=== PATIENT | female | born 1985 | race Caucasian/White ===

== ENCOUNTER → 2020-11-21 14:52 | Outpatient (CLI) | payer BC, SELFPAY ==
[2020-11-21] MEDS: COVID-19 VACC #1, MRNA(MOD) 100 MCG/0.5 ML VIAL IM (15:01)
== END ==
PROVIDERS: Visit Provider Internal Medicine
DX: Z23 Encounter for immunization (principal)
CPT/HCPCS: 0011A; 91301

== ENCOUNTER → 2020-12-19 15:06 | Outpatient (CLI) | payer BC, SELFPAY ==
[2020-12-19] MEDS: COVID-19 VACC #2, MRNA(MOD) 100 MCG/0.5 ML VIAL IM (15:14)
== END ==
PROVIDERS: Visit Provider Internal Medicine
DX: Z23 Encounter for immunization (principal)
CPT/HCPCS: 0012A; 91301

== ENCOUNTER → 2021-06-19 15:22 | Outpatient (CLI) | payer OTHER, SELFPAY ==
[2021-06-19] MEDS: COVID-19 VACC #3, MRNA(MOD) 50 MCG/0.25 ML VIAL IM (15:26)
== END ==
PROVIDERS: Visit Provider Internal Medicine
DX: Z23 Encounter for immunization (principal)
CPT/HCPCS: 0013A; 91301

== ENCOUNTER → 2022-12-18 09:03 | Outpatient (CLI) | payer BC, SELFPAY ==
[2022-12-18 10:27] LABS: Add Manual Diff / Slide Review NO; Basophils Absolute Auto 0 /uL (0-100); Basophils Percent Auto 0.6 % (0-2); Eosinophils Absolute Auto 700 /uL (0-450); Eosinophils Percent Auto 9.2 % (2-4); Hematocrit 39.6 % (36-46); Lymphocytes Absolute Auto 2100 /uL (1100-4500); Lymphocytes Percent Auto 28.1 % (25-40); Mean Corpuscular HGB Conc 32.7 % (30-36); Mean Corpuscular Hemoglobin 28.3 PG (26-34); Mean Corpuscular Volume 86.4 fL (80-100); Monocytes Absolute Auto 500 /uL (0-900); Neutrophils Absolute Auto 4100 /uL (1500-7000); Neutrophils Percent Auto 55.1 % (50-75); Platelet Count 311 X10^3/uL (150-400); Red Blood Cell Count 4.59 X10^6/uL (4.0-5.2); Red Cell Distribution Width 15.3 % (11.6-14.8); White Blood Cell Count 7.3 X10^3/uL (4.5-11.0)
[2022-12-18 10:46] LABS: Alanine Aminotransferase 19 IU/L (<35); Albumin Globulin Ratio 1.4 (1.0-2.8); Alkaline Phosphatase 69 U/L (38-126); Aspartate Aminotransferase 19 IU/L (14-36); BUN Creatinine Ratio 13.6 (6-22); Bilirubin Total 0.5 mg/dL (0.2-1.3); Blood Urea Nitrogen 11 mg/dL (7-17); Carbon Dioxide 19 mmol/L (22-32); Chloride 104 mmol/L (98-107); Cholesterol 181 mg/dL (140-199); Estimated Glomerular Filt Rate > 60 mL/min (>60); Globulin 2.8 g/dL (1.7-4.1); Glucose 93 mg/dL (70-100); HDL Cholesterol 57 mg/dL (40-60); HEMOLYSIS < 15 (0-50); LDL Cholesterol Calculated 110 mg/dL (<100); Potassium 4.2 mmol/L (3.4-5.1); Sodium 136 mmol/L (137-145); Total Protein 6.8 g/dL (6.3-8.2); Triglycerides 72 mg/dL (35-150)
[2022-12-20 01:36] LABS: Labcorp Hemoglobin (Hb) A1c 5.5 % (4.8-5.6)
== END ==
PROVIDERS: Referring Provider Registered Nurse; Visit Provider Registered Nurse
DX: F31.9 Bipolar disorder, unspecified (principal); F41.1 Generalized anxiety disorder
CPT/HCPCS: 36415; 80053; 80061; 83036; 85025

== ENCOUNTER → 2024-07-05 11:03 | Outpatient (CLI) | payer BC, SELFPAY ==
[2024-07-05 11:54] LABS: Add Manual Diff / Slide Review NO; Basophils Absolute Auto 100 /uL (0-100); Eosinophils Absolute Auto 500 /uL (0-450); Eosinophils Percent Auto 7.1 % (2-4); Hematocrit 41.4 % (36-46); Hemoglobin 13.8 g/dL (12.0-16.0); Lymphocytes Absolute Auto 2300 /uL (1100-4500); Lymphocytes Percent Auto 30.7 % (25-40); Mean Corpuscular HGB Conc 33.4 % (30-36); Mean Corpuscular Hemoglobin 28.7 PG (26-34); Mean Corpuscular Volume 85.9 fL (80-100); Monocytes Absolute Auto 500 /uL (0-900); Monocytes Percent Auto 6.6 % (3-14); Neutrophils Absolute Auto 4100 /uL (1500-7000); Neutrophils Percent Auto 54.6 % (50-75); Platelet Count 321 X10^3/uL (150-400); Red Blood Cell Count 4.82 X10^6/uL (4.0-5.2); Red Cell Distribution Width 14.5 % (11.6-14.8); White Blood Cell Count 7.6 X10^3/uL (4.5-11.0)
[2024-07-05 12:35] LABS: Alanine Aminotransferase 17 IU/L (<35); Albumin 4.3 g/dL (3.5-5.0); Albumin Globulin Ratio 1.7 (1.0-2.8); Alkaline Phosphatase 75 U/L (38-126); Aspartate Aminotransferase 21 IU/L (14-36); BUN Creatinine Ratio 10.3 (6-22); Bilirubin Total 0.7 mg/dL (0.2-1.3); Blood Urea Nitrogen 10 mg/dL (7-17); Calcium 9.7 mg/dL (8.4-10.2); Carbon Dioxide 22 mmol/L (22-32); Chloride 106 mmol/L (98-107); Cholesterol 192 mg/dL (140-199); Estimated Glomerular Filt Rate > 60 mL/min (>60); Globulin 2.5 g/dL (1.7-4.1); Glucose 96 mg/dL (70-100); HDL Cholesterol 56 mg/dL (40-60); HEMOLYSIS < 15 (0-50); Hemoglobin A1C% w Est Avg Glu 4.7 % (4.0-6.0); LDL Cholesterol Calculated 120 mg/dL (<100); Potassium 4.5 mmol/L (3.4-5.1); Sodium 136 mmol/L (137-145); Total Protein 6.8 g/dL (6.3-8.2); Triglycerides 82 mg/dL (35-150)
[2024-07-05 13:02] LABS: TSH w/ Reflex to FT4 3.85 uIU/mL (0.47-4.68)
== END ==
PROVIDERS: Referring Provider Registered Nurse; Visit Provider Registered Nurse
DX: F31.9 Bipolar disorder, unspecified (principal); F41.1 Generalized anxiety disorder; Z79.899 Other long term (current) drug therapy
CPT/HCPCS: 36415; 80053; 80061; 83036; 84443; 85025

== ENCOUNTER 2024-09-15 16:11 | Emergency (ER) | payer BC, SELFPAY ==
[2024-09-15 16:19] VITALS: BP 135/92; PULSE 97; RESP 17; TEMP 36.6; O2SAT 98; BMI 78.2
--- NOTE | 2024-09-15 16:29 | ED.ABDPAIN ---
HPI - Abdominal Pain <Camille Ferguson PA-C - Last Filed: 09/15/24 17:51> General Chief Complaint: Abdominal Pain Stated Complaint: constipation x 3 days, OTC's not working Time Seen by Provider: 09/15/24 16:26 Source: patient Mode of arrival: Ambulatory History of Present Illness HPI narrative: This is a 39-year-old female with morbid obesity and concern for constipation. Pt has had no bowel movement for 7 days, she had a full package of Mag citrate on Tuesday with no relief has been drinking lots of water and has also tried Colace for 3 days. She is also increase her fruit and vegetable intake. She endorses some pressure in the area of the rectum when she was attempting to have a bowel movement with some mild abdominal discomfort but otherwise no abdominal pain. She states she has had constipation before but never for this long. Patient ultimately acknowledges ?I know it has been at least 7 days but I can not remember exactly when I last had a bowel movement?. She states she has not had any recent changes to medications, vitamins or diet. She denies nausea, vomiting, generalized abdominal pain, any chance of , urinary symptoms or other and states she has been in her usual state of health. Related Data Home Medications Medication Instructions Recorded Confirmed lamotrigine 150 mg tablet mg 09/15/24 quetiapine 300 mg tablet mg 09/15/24 sulfamethoxazole 800 tab 09/15/24 mg-trimethoprim 160 mg tablet terbinafine HCl 250 mg tablet 250 mg PO 09/15/24 tirzepatide (weight loss) 12.5 12.5 mg SUBCUT 09/15/24 mg/0.5 mL subcutaneous pen injector (Zepbound) Allergies Allergy/AdvReac Type Severity Reaction Status Date / Time No Known Drug Allergies Allergy Verified 09/15/24 16:23 Review of Systems <Camille Ferguson PA-C - Last Filed: 09/15/24 17:51> Review of Systems Narrative: See HPI Patient History <Camille Ferguson PA-C - Last Filed: 09/15/24 17:51> Social History Smoking Status: Never smoker Smoking Status: Never smoker Exam <Camille Ferguson PA-C - Last Filed: 09/15/24 17:51> Narrative Exam Narrative: GENERAL: [39] year old patient appears stated age. Morbidly obese patient, in mild distress. Generally well-appearing. HEAD: Atraumatic. Normocephalic. EYES: Pupils equal round and reactive. Extraocular motions intact. No scleral icterus. No injection or drainage. ENT: Nose without bleeding, purulent drainage. Airway patent. NECK: Trachea midline. Non tender CARDIOVASCULAR: Regular rate and rhythm without murmurs, gallops, or rubs. RESPIRATORY: Clear to auscultation. Breath sounds equal bilaterally. No wheezes, rales, or rhonchi. GASTROINTESTINAL: Abdomen soft, areas mild generalized discomfort with palpation over the lower abdomen; exam consistent with palpable stool burden. Otherwise non-tender, nondistended. EXTREMITIES: Moving all extremities, normal gait. No edema or joint tenderness. BACK: Nontender without deformity or crepitance. No flank tenderness. NEURO: AOx3. SKIN: No rash or erythema of visible areas Initial Vital Signs Initial Vital Signs: Vital Signs Temperature 98 F 09/15/24 16:19 Pulse Rate 97 H 09/15/24 16:19 Respiratory Rate 17 09/15/24 16:19 Blood Pressure 135/92 H 09/15/24 16:19 Pulse Oximetry 98 09/15/24 16:19 Oxygen Delivery Method Room Air 09/15/24 16:19 <Shanika Villarreal DO - Last Filed: 09/16/24 12:05> Initial Vital Signs Initial Vital Signs: Vital Signs Temperature 98 F 09/15/24 16:19 Pulse Rate 97 H 09/15/24 16:19 Respiratory Rate 17 09/15/24 16:19 Blood Pressure 135/92 H 09/15/24 16:19 Pulse Oximetry 98 09/15/24 16:19 Oxygen Delivery Method Room Air 09/15/24 16:19 Course <Camilel Ferguson PA-C - Last Filed: 09/15/24 17:51> Orders Ordered: Discontinued Medications Polyethylene Glycol/Electrolytes ([id number]/Sod Sulf,Bicarb,Cl/Kcl 4,000 Ml Solution) 2,000 ml PO NOW ONE Stop: 09/15/24 16:41 Last Admin: 09/15/24 17:45 Dose: 2,000 ml Documented By: LM Vital Signs Vital signs: Vital Signs - 8 hr 09/15/24 16:19 Temperature 98 F Pulse Rate 97 H Respiratory Rate 17 Blood Pressure 135/92 H Pulse Oximetry 98 Oxygen Delivery Method Room Air <Shanika Villarreal DO - Last Filed: 09/16/24 12:05> Orders Ordered: Discontinued Medications Polyethylene Glycol/Electrolytes ([id number]/Sod Sulf,Bicarb,Cl/Kcl 4,000 Ml Solution) 2,000 ml PO NOW ONE Stop: 09/15/24 16:41 Last Admin: 09/15/24 17:45 Dose: 2,000 ml Documented By: LM Vital Signs Vital signs: Vital Signs - 8 hr 09/15/24 16:19 Temperature 98 F Pulse Rate 97 H Respiratory Rate 17 Blood Pressure 135/92 H Pulse Oximetry 98 Oxygen Delivery Method Room Air MDM - Abdominal Pain <Camille Ferguson PA-C - Last Filed: 09/15/24 17:51> Differential Diagnosis Differential diagnosis: Likely constipation, diverticulitis and other (Bowel obstruction) Medical Records Attestation: I reviewed the patient's medical records. Imaging Data Abdominal x-ray: My Impression: Agree with Radiology interpretation Radiologist's Impression: [address] [address] XRay Report Signed Patient: Suzi Jacinto MR#: [id number] : 1985 Acct:[id number] Age/Sex: 39 / F Date of Service: 09/15/24 Loc: ED Accession Number: [id number] Procedure: XR acute abdomen series Ordering Provider: Camille Ferguson PA-C PROCEDURE: XR ACUTE ABDOMEN SERIES INDICATIONS: Low Abd pressure constipation X 7 days TECHNIQUE: One view chest and two views of the abdomen were acquired. COMPARISON: None. FINDINGS: Surgical changes and devices: Cholecystectomy clips. Chest: Lungs are clear. Heart size is normal. No pleural effusions. No pneumoperitoneum. Abdomen: Somewhat prominent stool in the right colon. No dilated loops of small bowel. No suspicious calcifications. Visualized solid organ contours appear normal. Bones: No suspicious bony lesions. IMPRESSION: No acute cardiopulmonary abnormality. Nonobstructive bowel gas pattern. Somewhat prominent stool in the right colon. Dictated by: Marco Patel M.D. on 09/15/2024 at 17:28 Approved by: Marco Patel M.D. on 09/15/2024 at 17:30 MDM Narrative Medical decision making narrative: This is a 39-year-old morbidly obese woman presenting with concern for constipation for about 7 days. Only really realize she was constipated on Tuesday 4 days ago when she had discomfort with the attempting to have a bowel movement. Last BM 7 or more days ago. Patient states that she feels there is something there in her rectum when she tries to bear down. Her abdominal exam is nonspecific mild generalized tenderness of the low abdomen. She has not had fevers nausea vomiting or other concerning symptoms. Abdominal x-ray series ordered to evaluate for/confirm suspected stool burden. Abdominal x-ray series obtained to confirm suspicion for constipation showing a nonobstructive bowel gas pattern with somewhat prominent stool in the right colon. Discussed options with the patient and she prefers to try GoLYTELY rather than trying an enema. Patient denies any possibility of . Is on weight loss medication Tirzepatide; and has had no recent medication changes. Prescription for to 2000 mg GoLYTELY; patient advised to seek re-evaluation if this is ineffective, suspect it will be effective and she was advised to continue with pushing fluids, when she is having normal bowel movements after the GoLYTELY advised she may want to take MiraLax for the next few weeks to ensure regularity and make sure she is increasing fruits and vegetables and fiber in her diet. Return precautions provided, follow-up plan discussed, all questions answered Discharge Plan Departure Patient Disposition: Home Clinical Impression: Constipation Qualifiers: Constipation type: unspecified constipation type Qualified Code(s): K59.00 - Constipation, unspecified Activity Restrictions/Additional Instructions: *You have been diagnosed with [constipation] *What to do: *Please continue to take your regular medications as directed. [ X] New medication prescriptions sent to your pharmacy: [Provided at discharge, GoLYTELY] [ ] New medication written as a paper prescription [ ] No new medications given *Please follow up with your primary care provider in 2-3 days, call for an appointment. Let them know you were seen in the Emergency Department and that we ask that you be seen in follow up. We will electronically transmit a record of today's note if your PCP is in our system. You came in today with concern for constipation and not having had a bowel movement for 7 days or possibly longer. Your exam was also consistent with constipation we obtained abdominal x-rays and this did show some constipation/stool burden in your right colon with no evidence of an obstructive bowel gas pattern. Your preference was to try GoLYTELY to get things moving rather than an enema in the emergency department. I suspect that this will be effective for you usually within the 1st 8 hours certainly within the 1st 24 hours. You should stay home/near a bathroom when taking this. After your successfully having bowel movement do recommend that you continue with pushing fluids, fruits vegetables and fiber in your diet you may want to use miralax for the next 7-14 days. Since you do have some mild intermittent chronic problems with constipation it may be advisable for you to take this on a somewhat regular basis to avoid having more severe constipation issues such as you do today. If you do develop new or worsening symptoms such as fevers, abdominal pain, blood in your stool or any other symptoms of concern please make sure you seek immediate re-evaluation. I hope you feel better soon. *If you do not have a primary care provider please contact the [facility] Resource line at [phone]. They will ask some questions about your medical history and help get you set up with a doctor in the community. *Return to Emergency Department if you should have any new, worsening or concerning symptoms, such as [fever greater than 101 F, shaking chills, worsening pain, persistent vomiting or other bothersome symptoms] Prescriptions: No Action lamotrigine 150 mg tablet quetiapine 300 mg tablet sulfamethoxazole-trimethoprim 800-160 mg tablet terbinafine HCl 250 mg tablet 250 mg PO Zepbound 12.5 mg/0.5 mL pen injector 12.5 mg SUBCUT Referrals: Miscellaneous,[facility] [Primary Care Provider] - Stand Alone Forms: Patient Portal/API/Survey ED Sign-out <Shanika Villarreal DO - Last Filed: 09/16/24 12:05> Cosign ED Attending Naveen Attestation: I was available for consultation.
--- NOTE | 2024-09-15 16:39 | DI.RAD.S_ITS ---
PROCEDURE: XR ACUTE ABDOMEN SERIES INDICATIONS: Low Abd pressure constipation X 7 days TECHNIQUE: One view chest and two views of the abdomen were acquired. COMPARISON: None. FINDINGS: Surgical changes and devices: Cholecystectomy clips. Chest: Lungs are clear. Heart size is normal. No pleural effusions. No pneumoperitoneum. Abdomen: Somewhat prominent stool in the right colon. No dilated loops of small bowel. No suspicious calcifications. Visualized solid organ contours appear normal. Bones: No suspicious bony lesions. IMPRESSION: No acute cardiopulmonary abnormality. Nonobstructive bowel gas pattern. Somewhat prominent stool in the right colon. Dictated by: Marco Patel M.D. on 09/15/2024 at 17:28 Approved by: Marco Patel M.D. on 09/15/2024 at 17:30
[2024-09-15] MEDS: PEG3350/SOD SULF,BICARB,CL/KCL 4,000 ML SOLUTION 2000 ML PO (17:45)
[2024-09-15 17:52] VITALS: RESP 18; O2SAT 97
== END 2024-09-15 17:53 | disposition home or self-care (01) ==
PROVIDERS: Emergency Provider Student in an Organized Health Care Education/Training Program
DX: K59.00 Constipation, unspecified (principal); R10.30 Lower abdominal pain, unspecified; E66.01 Morbid (severe) obesity due to excess calories; Z68.45 Body mass index [BMI] 70 or greater, adult
CPT/HCPCS: 74022; 99283

== ENCOUNTER 2024-09-20 11:04 | Emergency (ER) | payer BC, SELFPAY ==
[2024-09-20 11:11] VITALS: BP 141/86; PULSE 96; RESP 16; TEMP 36.6; O2SAT 96; BMI 78.2
--- NOTE | 2024-09-20 15:54 | ED_ITS ---
HPI - Abdominal Pain General Chief Complaint: Abdominal Pain Stated Complaint: Still constipated since 7 days Time Seen by Provider: 09/20/24 15:51 History of Present Illness HPI narrative: 39-year-old female without any significant past medical history comes into the ED for evaluation of abdominal pain nausea constipation ongoing persistent for the past several days, she states that she was seen here recently for the same did have some mild improvement but is still having significant amount of abdominal distention states that she has not having a ?normal bowel movement for the past several weeks/months ever since she started taking tirzepatide for weight loss that is prescribed to her by her offal icer poultry/weight loss doctor. She denies any other symptoms such as headache visual disturbances chest pain shortness breath fever chills or any other GI/ symptoms time. She states that she has been trying to take MiraLax without any much relief therefore decided come into the ED for further evaluation treatment. Related Data Home Medications Medication Instructions Recorded Confirmed lamotrigine 150 mg tablet mg 09/15/24 quetiapine 300 mg tablet mg 09/15/24 sulfamethoxazole 800 tab 09/15/24 mg-trimethoprim 160 mg tablet terbinafine HCl 250 mg tablet 250 mg PO 09/15/24 tirzepatide (weight loss) 12.5 12.5 mg SUBCUT 09/15/24 mg/0.5 mL subcutaneous pen injector (Zepbound) Allergies Allergy/AdvReac Type Severity Reaction Status Date / Time No Known Drug Allergies Allergy Verified 09/20/24 11:11 Review of Systems Review of Systems Narrative: General: Denies fever, chills, weight loss HEENT: Denies headache, eye drainage, eye irritation, head trauma, sore throat, voice change Cardiovascular: Denies any chest pain, palpitations, shortness of breath, tachycardia Respiratory: Denies any shortness of breath, cough, wheeze, stridor GI/: Positive abdominal pain, nausea, vomiting, constipation, denies diarrhea, bright red blood per rectum, melanotic stools, urinary frequency, urinary retention, dysuria, hematuria MSK: Denies any joint pain, muscle pains, swelling Skin: Denies any rashes, lesions, discoloration Neuro: Denies any headache, lightheadedness, dizziness, fainting, weakness Psych: Denies SI/HI Patient History Social History Smoking Status: Never smoker Smoking Status: Never smoker Exam Narrative Exam Narrative: General: Cooperative, comfortable, well-developed, not in acute distress HEENT: Normocephalic, atraumatic, PERRLA, normal sclera, eyelids normal, Neck: Active full range of motion, atraumatic Chest: Normal to inspection, negative crepitus, no overlying erythema ecchymosis Respiratory: Normal respiratory effort, not in acute respiratory distress, clear to auscultation bilaterally negative cough, wheeze, tachypnea, rhonchi, rales Cardiology: Regular rate rhythm negative gallop, murmur, rubs GI/: Normal to inspection, soft, nonrigid, no tenderness to palpation, exam deferred MSK: Full range of active range of motion of all 4 extremities, atraumatic Skin: No rashes lesions noted Neuro: Alert awake oriented x3, moves all 4 extremities spontaneously, cranial nerves intact, able to answer all questions appropriately follows commands appropriately Psych: Cooperative, negative suicidal or homicidal ideations Initial Vital Signs Initial Vital Signs: Vital Signs Temperature 97.9 F 09/20/24 11:11 Pulse Rate 96 H 09/20/24 11:11 Respiratory Rate 16 09/20/24 11:11 Blood Pressure 141/86 H 09/20/24 11:11 Pulse Oximetry 96 09/20/24 11:11 Oxygen Delivery Method Room Air 09/20/24 11:11 Course Orders Ordered: ED Orders 09/20/24 16:04 CT abdomen pelvis w con Stat 09/20/24 16:35 Complete Blood Count AUTO DIFF Stat Comprehensive Metabolic Panel Stat Lactate (Lactic Acid) Stat Lipase Stat MAG [Magnesium] Stat Discontinued Medications Ketorolac Tromethamine (Ketorolac 30 Mg/Ml Vial) 30 mg IV NOW ONE Stop: 09/20/24 16:03 Last Admin: 09/20/24 16:40 Dose: 30 mg Documented By: LM Lactulose (Lactulose 20 Gm/30 Ml Solution) 20 gm PO NOW ONE Stop: 09/20/24 17:11 Ondansetron HCl (Ondansetron 4 Mg/2 Ml Inj) 4 mg IV NOW ONE Stop: 09/20/24 16:03 Last Admin: 09/20/24 16:40 Dose: 4 mg Documented By: LM Vital Signs Vital signs: Vital Signs - 8 hr 09/20/24 11:11 Temperature 97.9 F Pulse Rate 96 H Respiratory Rate 16 Blood Pressure 141/86 H Pulse Oximetry 96 Oxygen Delivery Method Room Air MDM - Abdominal Pain Differential Diagnosis Differential diagnosis: Likely abdominal pain, acute appendicitis, constipation, diverticulitis, small bowel obstruction and other (Electrolyte abnormality) Lab Data 09/20/24 16:35 09/20/24 16:35 Labs: Lab Results 09/20/24 Range/Units 16:35 WBC 6.4 (4.5-11.0) X10^3/uL RBC 4.65 (4.0-5.2) X10^6/uL Hgb 13.5 (12.0-16.0) g/dL Hct 40.2 (36-46) % MCV 86.5 (80-100) fL MCH 29.0 (26-34) PG MCHC 33.5 (30-36) % RDW 14.9 H (11.6-14.8) % Plt Count 282 (150-400) X10^3/uL Neut % (Auto) 62.1 (50-75) % Lymph % (Auto) 25.8 (25-40) % Eaton % (Auto) 7.9 (3-14) % Eos % (Auto) 3.1 (2-4) % Baso % (Auto) 1.1 (0-2) % Neut # (Auto) 4000 (1071-0530) /uL Lymph # (Auto) 1700 (6702-4662) /uL Eaton # (Auto) 500 (0-900) /uL Eos # (Auto) 200 (0-450) /uL Baso # (Auto) 100 (0-100) /uL Sodium 137 (137-145) mmol/L Potassium 4.2 (3.4-5.1) mmol/L Chloride 105 (98-107) mmol/L Carbon Dioxide 22 (22-32) mmol/L BUN 6 L (7-17) mg/dL Creatinine 1.09 H (0.52-1.04) mg/dL Estimated GFR > 60 (>60) mL/min BUN/Creatinine Ratio 5.5 L (6-22) Glucose 86 (70-100) mg/dL Lactate 1.0 (0.7-2.1) mmol/L Calcium 9.1 (8.4-10.2) mg/dL Magnesium 2.1 (1.6-2.3) mg/dL Total Bilirubin 0.5 (0.2-1.3) mg/dL AST 24 (14-36) IU/L ALT 19 (<35) IU/L Alkaline Phosphatase 86 (38-126) U/L Total Protein 7.2 (6.3-8.2) g/dL Albumin 4.2 (3.5-5.0) g/dL Globulin 3.0 (1.7-4.1) g/dL Albumin/Globulin Ratio 1.4 (1.0-2.8) Lipase 13 L (23-300) U/L Imaging Data CT scan - abdomen/pelvis: Radiologist's Impression: [address] [address] [address] Scan Report Signed Patient: Suzi Jacinto MR#: [id number] : 1985 Acct:[id number] Age/Sex: 39 / F Date of Service: 09/20/24 Loc: ED Accession Number: [id number] Procedure: CT abdomen pelvis w con Ordering Provider: Ld Sweeney D.O. PROCEDURE: CT ABDOMEN PELVIS W CON INDICATIONS: abd pain, constipation TECHNIQUE: After the administration of intravenous contrast, axial sections acquired from the lung bases to the pubic symphysis. Coronal and sagittal reformats were performed. For radiation dose reduction, the following was used: automated exposure control, adjustment of mA and/or kV according to patient size. COMPARISON: None. FINDINGS: Image quality: Diagnostic. Lower Chest: Bibasilar atelectasis. Small hiatal hernia. ABDOMEN: Liver: No solid mass. Gallbladder: Surgically absent Biliary ducts: No biliary dilation. Pancreas: Severe pancreatic fatty atrophy. No peripancreatic inflammatory changes. Spleen: Splenomegaly. Adrenal Glands: No adrenal nodules. Kidneys and Ureters: No hydronephrosis. No solid mass. No complex renal cystic lesion which requires follow up. Stomach and Bowel: Normal colonic caliber, without significant wall thickening. Moderate fecal burden seen throughout the colon but most pronounced in the distal colon and rectum with mild circumferential wall thickening and perirectal stranding. No evidence for small bowel obstruction or associated inflammatory changes. Peritoneum: No abnormal intraperitoneal fluid. No free air. Ventral Wall: No significant ventral hernia. Abdominal Nodes: No retroperitoneal or mesenteric adenopathy by size criteria. Vessels: Aorta and inferior vena cava are normal in size. PELVIS: Pelvic Organs: Unremarkable. Bladder: No bladder wall thickening, accounting for underdistention. Pelvic Nodes: No enlarged lymph nodes. Miscellaneous: No inguinal hernias are seen. Bones: No aggressive osseous abnormality. Visualized osseous structures appear intact without acute fracture or focal destructive lesion. No acute compression fractures of the imaged spine. IMPRESSION: Splenomegaly Severe fatty atrophy of the pancreas. Large fecal burden seen in the distal colon and rectum with mild perirectal stranding. Findings may represent constipation and/or concurrent proctitis. Recommend correlation with clinical exam. Status post cholecystectomy. Small hiatal hernia. MDM Narrative Medical decision making narrative: 39-year-old female without any significant past medical history presents for abdominal pain nausea constipation ongoing persistent for several weeks but worsening over the past 7 days. Has been seen here previously for this same states that given the fact that her symptoms have not improved after trying MiraLax she decided come into the ED for further evaluation treatment. To note patient has been taking tirzepatide, and states that she had an increase in her dosage when her symptoms did start, adverse side effect of this noted to cause constipation. Patient's CT scan showing large fecal burden in the distal colon and rectum this is most likely drug induced given patient's new medication of Tirzepatide which can cause constipation/slowed gut motility. We will give lactulose here. Patient denying any very symptoms therefore no need for urinalysis, informed patient to follow up with primary care and possibly GI for continued evaluation treatment for constipation. She was given strict return precautions she verbalized understanding of this and agrees to being discharged home with outpatient follow up Discharge Plan Departure Patient Disposition: Home Clinical Impression: Constipation Instructions: DI for Constipation Activity Restrictions/Additional Instructions: Please follow up with primary care and GI Please read the discharge instructions sheet carefully and bring all papers to all doctor follow-up visits, as it may contain information that your doctor may want to see. Disease processes change and evolve, if your symptoms worsen or if you develop any new symptoms that are concerning to you please return for evaluation. Your evaluation today does not show any evidence of any life- threatening/serious illnesses requiring admission to the hospital or surgery. Please follow-up with your doctor for re-evaluation in approximately 1 day. Seek immediate medical attention for any worrisome symptoms. *If you do not have a primary care provider please contact the [facility] Resource line at [phone]. They will ask some questions about your medical history and help get you set up with a doctor in the community. Prescriptions: No Action lamotrigine 150 mg tablet quetiapine 300 mg tablet sulfamethoxazole-trimethoprim 800-160 mg tablet terbinafine HCl 250 mg tablet 250 mg PO Zepbound 12.5 mg/0.5 mL pen injector 12.5 mg SUBCUT Stand Alone Forms: Patient Portal/API/Survey
--- NOTE | 2024-09-20 16:04 | DI.CT.S_ITS ---
PROCEDURE: CT ABDOMEN PELVIS W CON INDICATIONS: abd pain, constipation TECHNIQUE: After the administration of intravenous contrast, axial sections acquired from the lung bases to the pubic symphysis. Coronal and sagittal reformats were performed. For radiation dose reduction, the following was used: automated exposure control, adjustment of mA and/or kV according to patient size. COMPARISON: None. FINDINGS: Image quality: Diagnostic. Lower Chest: Bibasilar atelectasis. Small hiatal hernia. ABDOMEN: Liver: No solid mass. Gallbladder: Surgically absent Biliary ducts: No biliary dilation. Pancreas: Severe pancreatic fatty atrophy. No peripancreatic inflammatory changes. Spleen: Splenomegaly. Adrenal Glands: No adrenal nodules. Kidneys and Ureters: No hydronephrosis. No solid mass. No complex renal cystic lesion which requires follow up. Stomach and Bowel: Normal colonic caliber, without significant wall thickening. Moderate fecal burden seen throughout the colon but most pronounced in the distal colon and rectum with mild circumferential wall thickening and perirectal stranding. No evidence for small bowel obstruction or associated inflammatory changes. Peritoneum: No abnormal intraperitoneal fluid. No free air. Ventral Wall: No significant ventral hernia. Abdominal Nodes: No retroperitoneal or mesenteric adenopathy by size criteria. Vessels: Aorta and inferior vena cava are normal in size. PELVIS: Pelvic Organs: Unremarkable. Bladder: No bladder wall thickening, accounting for underdistention. Pelvic Nodes: No enlarged lymph nodes. Miscellaneous: No inguinal hernias are seen. Bones: No aggressive osseous abnormality. Visualized osseous structures appear intact without acute fracture or focal destructive lesion. No acute compression fractures of the imaged spine. IMPRESSION: Splenomegaly Severe fatty atrophy of the pancreas. Large fecal burden seen in the distal colon and rectum with mild perirectal stranding. Findings may represent constipation and/or concurrent proctitis. Recommend correlation with clinical exam. Status post cholecystectomy. Small hiatal hernia. Dictated by: Grant Russo M.D. on 09/20/2024 at 17:01 Approved by: Grant Russo M.D. on 09/20/2024 at 17:06
[2024-09-20] MEDS: KETOROLAC 30 MG/ML VIAL IV (16:40)
[2024-09-20] MEDS: ONDANSETRON 4 MG/2 ML INJ IV (16:40)
[2024-09-20 16:50] LABS: Add Manual Diff / Slide Review NO; Basophils Absolute Auto 100 /uL (0-100); Basophils Percent Auto 1.1 % (0-2); Eosinophils Absolute Auto 200 /uL (0-450); Eosinophils Percent Auto 3.1 % (2-4); Hematocrit 40.2 % (36-46); Hemoglobin 13.5 g/dL (12.0-16.0); Lymphocytes Absolute Auto 1700 /uL (1100-4500); Lymphocytes Percent Auto 25.8 % (25-40); Mean Corpuscular HGB Conc 33.5 % (30-36); Mean Corpuscular Volume 86.5 fL (80-100); Monocytes Absolute Auto 500 /uL (0-900); Monocytes Percent Auto 7.9 % (3-14); Neutrophils Absolute Auto 4000 /uL (1500-7000); Neutrophils Percent Auto 62.1 % (50-75); Platelet Count 282 X10^3/uL (150-400); Red Blood Cell Count 4.65 X10^6/uL (4.0-5.2); Red Cell Distribution Width 14.9 % (11.6-14.8); White Blood Cell Count 6.4 X10^3/uL (4.5-11.0)
[2024-09-20 16:53] VITALS: BP 128/69; PULSE 90; O2SAT 97
[2024-09-20 17:00] VITALS: PULSE 82; O2SAT 96
[2024-09-20 17:01] LABS: Alanine Aminotransferase 19 IU/L (<35); Albumin 4.2 g/dL (3.5-5.0); Albumin Globulin Ratio 1.4 (1.0-2.8); Alkaline Phosphatase 86 U/L (38-126); Aspartate Aminotransferase 24 IU/L (14-36); BUN Creatinine Ratio 5.5 (6-22); Bilirubin Total 0.5 mg/dL (0.2-1.3); Blood Urea Nitrogen 6 mg/dL (7-17); Calcium 9.1 mg/dL (8.4-10.2); Carbon Dioxide 22 mmol/L (22-32); Chloride 105 mmol/L (98-107); Estimated Glomerular Filt Rate > 60 mL/min (>60); Glucose 86 mg/dL (70-100); HEMOLYSIS < 15 (0-50); Lipase 13 U/L (23-300); Potassium 4.2 mmol/L (3.4-5.1); Sodium 137 mmol/L (137-145); Total Protein 7.2 g/dL (6.3-8.2)
[2024-09-20 17:02] LABS: Magnesium 2.1 mg/dL (1.6-2.3)
[2024-09-20 17:30] VITALS: PULSE 82; O2SAT 96
[2024-09-20 18:00] VITALS: BP 133/72; PULSE 72; O2SAT 96
[2024-09-20] MEDS: LACTULOSE 20 GM/30 ML SOLUTION PO (18:10)
--- NOTE | 2024-09-26 14:37 | PC.NURSE ---
Riya Forrester, and myself spoke with patient. her lactulose 20 gms po bid package is not covered by her insurance. Riya spoke with [employer] to change it to the liquid. I also called and left message with the pharmacist.
--- NOTE | 2024-09-26 15:58 | PC.NURSE ---
Pharmacist, Doug called back. will fill Lactulose 10gm/15ml. 20gms prn. dispense [address] Villarreal.
== END 2024-09-20 18:18 | disposition home or self-care (01) ==
PROVIDERS: Emergency Provider Student in an Organized Health Care Education/Training Program
DX: K59.00 Constipation, unspecified (principal)
CPT/HCPCS: 36415; 74177; 80053; 83605; 83690; 83735; 85025; 96374; 96375; 99284; J1885; J2405; Q9967